=== PATIENT | female | born 1985 | race Caucasian/White ===

== ENCOUNTER 2020-11-05 05:30 | Emergency (ER) | payer SELFPAY ==
[~2020-11-05] VITALS: Ht 162.6 cm; Wt 158.8 kg
[~2020-11-05 05:30] MED LIST: IBUPROFEN200 MG PO; IBUPROFEN400 MG PO; METRONIDAZOLE250 MG PO; METRONIDAZOLE500 MG PO; MOTRIN200 MG PO; NAPROXEN250 MG PO
[2020-11-05] MEDS ORDERED: SODIUM CHLORIDE 0.9% 1000ML 1,000 ML IV SCH (07:00)
[2020-11-05] MEDS ORDERED: SODIUM CHLORIDE 0.9% 50ML 50 ML ONE (07:09)
[2020-11-05] MEDS ORDERED: IOPAMIDOL 370 MG/ML 200 ML INFUS..BTL INJ ONE (07:10)
[2020-11-05] MEDS ORDERED: METRONIDAZOLE500 MG PO (07:50)
[2020-11-05] MEDS ORDERED: OMEPRAZOLE20 M1 PO (07:50)
[2020-11-05] MEDS ORDERED: ZOFRAN4 MG PO (07:50)
[2020-11-05] MEDS ORDERED: MAALOX MAXIMUM355 ML PO (07:50)
[2020-11-05] MEDS ORDERED: ONDANSETRON HCL INJ 2MG/ML 2ML 2 MG/ML VIAL IV NR (08:00)
[2020-11-05] MEDS ORDERED: FAMOTIDINE 20 MG/2 ML VIAL IV NR (08:00)
[2020-11-05] MEDS ORDERED: KETOROLAC TROMETHAMINE 30 MG/ML VIAL IV NR (08:00)
[2020-11-05] MEDS ORDERED: KETOROLAC TROMETHAMINE 30 MG/ML VIAL ONE (08:41)
[2020-11-05] MEDS ORDERED: FAMOTIDINE 20 MG/2 ML VIAL IV ONE (08:42)
[2020-11-05] MEDS ORDERED: ONDANSETRON HCL INJ 2MG/ML 2ML 2 MG/ML VIAL ONE (08:42)
[2020-11-05] MEDS ORDERED: ACETAMINOPHEN500 MG PO (09:21)
[2020-11-05] MEDS ORDERED: IBUPROFEN IB200 MG PO (09:21)
== END 2020-11-05 09:30 | disposition home or self-care (01) ==
LOC: FSED 05:46
DX: R10.30 Lower abdominal pain, unspecified (principal); R10.2 Pelvic and perineal pain; N13.30 Unspecified hydronephrosis; K80.20 Calculus of gallbladder without cholecystitis without obstruction; R11.2 Nausea with vomiting, unspecified; K52.9 Noninfective gastroenteritis and colitis, unspecified; K76.0 Fatty (change of) liver, not elsewhere classified; F17.210 Nicotine dependence, cigarettes, uncomplicated
CPT/HCPCS: 71046; 74177; 80053; 81003; 85025; 87400; 99284; J1885; J2405; J7030; Q9967